=== PATIENT | female | born 1990 | race African-American/Black ===

== ENCOUNTER 2017-05-18 16:29 | Emergency (ER) | payer SELFPAY ==
[2017-05-18] MEDS ORDERED: DEXAMETHASONE SOD PHOS INJ 10 MG/1 ML VIAL IM ONE (18:02)
--- NOTE | 2017-05-18 18:06 | ER Document Report ---
HPI - HPI Patient complains to provider of: sore throat and fever Onset: Yesterday Onset/Duration: Sudden Quality of pain: Throbbing Severity: Moderate Pain Level: 4 Context: Patient states she woke up yesterday with a sore throat and fever, which has worsened today. Patient states she has a history of strep and the last time she got it her tonsils got so large that she had difficulty swallowing and breathing. Associated Symptoms: Fever, Sore throat Exacerbated by: Denies Relieved by: Denies Similar symptoms previously: Yes Recently seen / treated by doctor: No - ROS ROS below otherwise negative: Yes Systems Reviewed and Negative: Yes All other systems reviewed and negative - CONSTITUTIONAL Constitutional: REPORTS: Fever - EENT EENT: REPORTS: Sore Throat. DENIES: Congestion - NEURO Neurology: DENIES: Headache - CARDIOVASCULAR Cardiovascular: DENIES: Chest pain - RESPIRATORY Respiratory: DENIES: Trouble Breathing - GASTROINTESTINAL Gastrointestinal: DENIES: Abdominal Pain - URINARY Urinary: DENIES: Dysuria - REPRODUCTIVE Reproductive: DENIES: : - MUSCULOSKELETAL Musculoskeletal: DENIES: Extremity pain - DERM Skin Color: Normal Past Medical History - General Information source: Patient - Social History Smoking Status: Never Smoker Frequency of alcohol use: Occasional Drug Abuse: None Lives with: Spouse/Significant other Family History: Reviewed & Not Pertinent Patient has suicidal ideation: No Patient has homicidal ideation: No Endocrine Medical History: Reports: Other - anemia Surgical Hx: Negative Vertical Provider Document - CONSTITUTIONAL Agree With Documented VS: Yes Exam Limitations: No Limitations General Appearance: WD/WN, No Apparent Distress - INFECTION CONTROL TRAVEL OUTSIDE OF THE [place] IN LAST 30 DAYS: No - HEENT HEENT: Atraumatic, Normocephalic, Pharyngeal Exudate, Pharyngeal Erythema Notes: Tonsils are 2+ with exudates - NECK Neck: Lymphadenopathy-Left, Lymphadenopathy-Right - RESPIRATORY Respiratory: Breath Sounds Normal, No Respiratory Distress O2 Sat by Pulse Oximetry: 100 - CARDIOVASCULAR Cardiovascular: Regular Rate, Regular Rhythm - GI/ABDOMEN Gastrointestinal: Abdomen Soft - MUSCULOSKELETAL/EXTREMETIES Musculoskeletal/Extremeties: MAEW - NEURO Level of Consciousness: Awake, Alert, Appropriate - DERM Integumentary: Warm, Dry, No Rash Course - Vital Signs Vital signs: Temp Pulse Resp BP Pulse Ox 98.7 F 100 20 149/81 H 100 05/18/17 17:14 05/18/17 17:14 05/18/17 17:14 05/18/17 17:14 05/18/17 17:14 Discharge - Discharge Clinical Impression: Exudative pharyngitis Condition: Good Disposition: HOME, SELF-CARE Additional Instructions: Finish all antibiotics as prescribed Tylenol or Motrin as needed for fever and/or sore throat Push fluids Replace your toothbrush in 2 days Follow-up with your doctor for recheck if not better in a couple of days Return if symptoms worsen and as needed. Prescriptions: Penicillin V Potassium [Penicillin Vk 500 mg Tablet] 500 mg PO BID #10 tablet Forms: Return to Work
[2017-05-18 19:18] VITALS: BP 143/83
== END 2017-05-18 19:41 | disposition home or self-care (01) ==
LOC: ER 16:29
DX: J02.9 Acute pharyngitis, unspecified (principal); R50.9 Fever, unspecified; R59.0 Localized enlarged lymph nodes
CPT/HCPCS: 99283; 96372; J1100

== ENCOUNTER 2017-08-25 19:14 | Emergency (ER) | payer OTHER ==
--- NOTE | 2017-08-25 20:24 | ER Document Report ---
ED Medical Screen (RME) - General Chief Complaint: Vag Bleeding, +preg <12wks Stated Complaint: VAGINAL BLEEDING Time Seen by Provider: 08/25/17 20:23 Notes: Patient states she is 7 weeks [place] She states she now has cramping and bleeding. TRAVEL OUTSIDE OF THE [place] IN LAST 30 DAYS: No - Related Data Allergies/Adverse Reactions: No Known Allergies Allergy (Verified 08/25/17 19:15) Past Medical History - Social History Frequency of alcohol use: Occasional Drug Abuse: None Renal/ Medical History: Denies: Hx Peritoneal Dialysis - Immunizations Hx Diphtheria, Pertussis, Tetanus Vaccination: Yes Physical Exam - Vital signs Vitals: Temp Pulse Resp BP Pulse Ox 98.4 F 88 20 139/86 H 100 08/25/17 19:20 08/25/17 19:20 08/25/17 19:20 08/25/17 19:20 08/25/17 19:20 Course - Vital Signs Vital signs: Temp Pulse Resp BP Pulse Ox 98.4 F 88 20 139/86 H 100 08/25/17 19:20 08/25/17 19:20 08/25/17 19:20 08/25/17 19:20 08/25/17 19:20
[2017-08-25 21:09] LABS: ABSOLUTE BASOPHILS # (AUTO) 0.1 10^3/uL (0.0-0.2); ABSOLUTE EOSINOPHILS # (AUTO) 0.1 10^3/uL (0.0-0.6); ABSOLUTE LYMPHOCYTES (AUTO) 1.2 10^3/uL (0.5-4.7); ABSOLUTE MONOCYTES (AUTO) 0.5 10^3/uL (0.1-1.4); ABSOLUTE NEUT (AUTO) 5.5 10^3/uL (1.7-8.2); EOSINOPHILS % (AUTO) 0.8 % (0-6); HEMATOCRIT 35.3 % (36.0-47.0); HEMOGLOBIN 11.8 g/dL (12.0-15.5); MEAN CORPUSCULAR HEMOGLOBIN 26.1 pg (27.0-33.4); MEAN CORPUSCULAR HGB CONC 33.3 g/dL (32.0-36.0); MEAN CORPUSCULAR VOLUME 78 fl (80-97); MONOCYTES % (AUTO) 7.4 % (3-13); PLATELET COUNT 319 10^3/uL (150-450); RED CELL DISTRIBUTION WIDTH 15.2 % (11.5-14.0); SEGMENTED NEUTROPHILS % (AUTO) 74.8 % (42-78); TOTAL CELLS COUNTED % (AUTO) 100 %; WHITE BLOOD COUNT 7.3 10^3/uL (4.0-10.5)
[2017-08-25 21:27] LABS: ALANINE AMINOTRANSFERASE 27 U/L (9-52); ALBUMIN 4.3 g/dL (3.5-5.0); ALKALINE PHOSPHATASE 52 U/L (38-126); ANION GAP 11 (5-19); ASPARTATE AMINO TRANSFERASE 19 U/L (14-36); BILIRUBIN,DIRECT 0.2 mg/dL (0.0-0.4); BILIRUBIN,TOTAL 0.3 mg/dL (0.2-1.3); BLOOD UREA NITROGEN 9 mg/dL (7-20); CARBON DIOXIDE 26 mmol/L (22-30); CHLORIDE 101 mmol/L (98-107); GLUCOSE 100 mg/dL (75-110); POTASSIUM 4.2 mmol/L (3.6-5.0); SODIUM 137.7 mmol/L (137-145); TOTAL PROTEIN 7.8 g/dL (6.3-8.2)
[2017-08-25 21:34] LABS: APPEARANCE,URINE SLIGHTLY-CLOUDY; BILIRUBIN,URINE NEGATIVE (NEGATIVE); COLOR,URINE YELLOW; GLUCOSE, URINE NEGATIVE (NEGATIVE); KETONES,URINE NEGATIVE (NEGATIVE); LEUKOCYTE ESTERASE,URINE NEGATIVE (NEGATIVE); NITRITE,URINE NEGATIVE (NEGATIVE); PROTEIN,URINE NEGATIVE (NEGATIVE); URINE SPECIFIC GRAVITY 1.023; UROBILINOGEN,URINE NEGATIVE mg/dL (<2.0)
--- NOTE | 2017-08-25 21:34 | ER Document Report ---
ED General - General Chief Complaint: Vag Bleeding, +preg <12wks Stated Complaint: VAGINAL BLEEDING Time Seen by Provider: 08/25/17 20:23 Notes: 26-year-old female presents with vaginal spotting for 24 hours. Constant. In the setting of being 6 weeks . She also has a lump in her left groin area but no abdominal pain dizziness vomiting or urinary symptoms. She was evaluated in triage prior to my evaluation, she had ultrasound and labs ordered. TRAVEL OUTSIDE OF THE [place] IN LAST 30 DAYS: No - Related Data Allergies/Adverse Reactions: No Known Allergies Allergy (Verified 08/25/17 19:15) Past Medical History - Social History Smoking Status: Never Smoker Frequency of alcohol use: Occasional Drug Abuse: None Family History: Reviewed & Not Pertinent Patient has suicidal ideation: No Patient has homicidal ideation: No Renal/ Medical History: Denies: Hx Peritoneal Dialysis - Immunizations Hx Diphtheria, Pertussis, Tetanus Vaccination: Yes Review of Systems - Review of Systems Notes: REVIEW OF SYSTEMS GEN: Denies fever, chills, weight loss ENT: Denies sore throat, nasal discharge, ear pain EYES: Denies blurry vision, eye pain, discharge CV: Denies chest pain, palpitations, edema RESP: Denies cough, shortness of breath, wheezing GI: Denies abdominal pain, nausea, vomiting, diarrhea MSK: Denies joint pain/swelling, edema, SKIN: Denies rash, skin lesions LYMPH: Denies swollen glands/lymph nodes NEURO: Denies headache, focal weakness or numbness, dizziness PSYCH: Denies depression, suicidal or homicidal ideation PHYSICAL EXAMINATION General: No acute distress, well-nourished Head: Atraumatic, normocephalic ENT: Mouth normal, oropharynx moist, no exudates or tonsillar enlargement Eyes: Conjunctiva normal, pupils equal, lids normal Neck: No JVD, supple, no guarding CVS: Normal rate, regular rhythm, no murmurs Resp: No resp distress, equal and normal breath sounds bilaterally GI: Nondistended, soft, no tenderness to palpation, no rebound or guarding Ext: No deformities, no edema, normal range of motion in upper and lower ext Back: No CVA or midline TTP Skin: No rash, warm Lymphatic: No lymphadeopathy noted Neuro: Awake, alert. Face symmetric. GCS 15. Physical Exam - Vital signs Vitals: Temp Pulse Resp BP Pulse Ox 98.4 F 88 20 139/86 H 100 08/25/17 19:20 08/25/17 19:20 08/25/17 19:20 08/25/17 19:20 08/25/17 19:20 Course - Re-evaluation Re-evalutation: 08/25/17 21:34 First trimester spotting with no pain. Normal vitals. No tenderness. Awaiting labs, hCG and ultrasound. Differential includes threatened versus ectopic more likely the prior. - Vital Signs Vital signs: Temp Pulse Resp BP Pulse Ox 98.4 F 88 20 139/86 H 100 08/25/17 19:20 08/25/17 19:20 08/25/17 19:20 08/25/17 19:20 08/25/17 19:20 08/25/17 22:26 Hemoglobin normal. Rh+ no RhoGam indicated. Ultrasound shows small subchorionic bleed. Patient given careful bleeding precautions and instructed to follow-up in 48 hours for repeat beta and ultrasound. I have discussed with the patient there likely diagnosis, aftercare plan, follow -up plans and my usual and customary return precautions. They verbalized understanding of this. - Laboratory Result Diagrams: 08/25/17 20:52 08/25/17 20:52 Laboratory results interpreted by me: 08/25/17 08/25/17 20:52 20:52 Hgb 11.8 L Hct 35.3 L MCV 78 L MCH 26.1 L RDW 15.2 H Urine Ascorbic Acid 40 H Discharge - Discharge Clinical Impression: Threatened miscarriage Subchorionic hemorrhage Qualifiers: Fetus number: single or unspecified fetus Trimester: first trimester Qualified Code(s): O41.8X10 - Other specified disorders of amniotic fluid and membranes, first trimester, not applicable or unspecified Condition: Good Disposition: HOME, SELF-CARE Instructions: Bleeding During Early ([facility]), Ob-Industrial Economics Teacher Doctors Additional Instructions: Please follow-up in 2 days, in the late afternoon to have a repeat betahCG blood draw and ultrasound with GLASS [employer]TER. If you are unable to do this please return to the emergency room.
--- NOTE | 2017-08-25 22:23 | RADIOLOGY REPORT (SQ) ---
EXAM DESCRIPTION: U/S OB TRANSVAGINAL W/O DOP COMPLETED DATE/TIME: 08/25/2017 10:12 pm REASON FOR STUDY: preg/bleed COMPARISON: None. TECHNIQUE: Transvaginal static and realtime grayscale images acquired of the pelvis. Additional ramsey cted spectral and color Doppler images recorded. All images stored on PACs. bHCG: Pending. LIMITATIONS: None. FINDINGS: FETUS: Living intrauterine . EGA: 7 weeks 5 days EMILY: 04/08/2016 FHR: 162 beats per minute. SUBCHORIONIC BLEED: Yes SIZE OF BLEED: 1.1 x 1.3 x 0.4 cm UTERUS: No masses. No anomalies. CERVICAL LENGTH: 2.9 cm Closed. RIGHT ADNEXA: Normal ovary with normal vascular flow. No adnexal free fluid. Ovarian cysts. The largest is 4.1 cm LEFT ADNEXA: Ovary not identified. No adnexal free fluid. No adnexal masses. FREE FLUID: None. OTHER: No other significant finding. IMPRESSION: LIVING INTRAUTERINE . EGA 7 weeks 5 days. Small subchorionic bleed. Right ovarian cysts. Trimester of : First - 0 to 13 weeks. TECHNICAL DOCUMENTATION: JOB ID: [id number] [employer]- All Rights Reserved
[2017-08-25 22:50] VITALS: BP 107/85
== END 2017-08-25 22:50 | disposition home or self-care (01) ==
LOC: ER 19:14
DX: O20.0 Threatened abortion (principal); O41.8X10 Other specified disorders of amniotic fluid and membranes, first trimester, not applicable or unspecified; Z3A.01 Less than 8 weeks gestation of pregnancy
CPT/HCPCS: 36415; 76817; 80053; 81001; 84702; 85025; 86900; 86901; 99284

== ENCOUNTER 2018-03-21 08:51 | Outpatient (CLI) | payer OTHER ==
[2018-03-21 09:59] LABS: APPEARANCE,URINE CLEAR; BILIRUBIN,URINE NEGATIVE (NEGATIVE); COLOR,URINE STRAW; GLUCOSE, URINE NEGATIVE (NEGATIVE); KETONES,URINE NEGATIVE (NEGATIVE); LEUKOCYTE ESTERASE,URINE TRACE (NEGATIVE); NITRITE,URINE NEGATIVE (NEGATIVE); PROTEIN,URINE NEGATIVE (NEGATIVE); URINE SPECIFIC GRAVITY 1.003; UROBILINOGEN,URINE NEGATIVE mg/dL (<2.0)
[2018-03-21 10:18] LABS: URINE AMPHETAMINES SCREEN NEGATIVE; URINE BARBITURATES SCREEN NEGATIVE; URINE BENZODIAZEPINES SCREEN NEGATIVE; URINE COCAINE SCREEN NEGATIVE; URINE MARIJUANA (THC) SCREEN NEGATIVE; URINE METHADONE SCREEN NEGATIVE; URINE PHENCYCLIDINE SCREEN NEGATIVE
== END 2018-03-21 10:15 | disposition home or self-care (01) ==
LOC: LC 08:51
PROVIDERS: ATTEND Student in an Organized Health Care Education/Training Program
PROC: 4A1HXCZ Monitoring of Products of Conception, Cardiac Rate, External Approach (ICD-10-PCS; principal; 2018-03-21)
DX: O36.8130 Decreased fetal movements, third trimester, not applicable or unspecified (principal); O26.893 Other specified pregnancy related conditions, third trimester; R06.02 Shortness of breath; Z3A.37 37 weeks gestation of pregnancy
CPT/HCPCS: 59025; 80307; 81005

== ENCOUNTER 2018-03-21 10:21 | Emergency (ER) | payer OTHER ==
--- NOTE | 2018-03-21 10:44 | ER Document Report ---
HPI - HPI Onset: Other - 2 days Pain Level: 3 Context: 27 yo female 37 weeks is c/o severe nasal congestion that she can't breathe through her nose and had trouble breathing while eating. Was in [facility] for movement check and the baby is fine. She denies chest pain, shortness of breath, fever, cough. Associated Symptoms: None Exacerbated by: Denies Relieved by: Denies Similar symptoms previously: Yes Recently seen / treated by doctor: No - ROS ROS below otherwise negative: Yes Systems Reviewed and Negative: Yes All other systems reviewed and negative - REPRODUCTIVE Reproductive: DENIES: : Past Medical History - General Information source: Patient - Social History Smoking Status: Never Smoker Frequency of alcohol use: None Drug Abuse: None Lives with: Family Family History: Reviewed & Not Pertinent - Medical History Medical History: Negative Renal/ Medical History: Denies: Hx Peritoneal Dialysis Surgical Hx: Negative - Immunizations Hx Diphtheria, Pertussis, Tetanus Vaccination: Yes Vertical Provider Document - CONSTITUTIONAL Agree With Documented VS: Yes Exam Limitations: No Limitations General Appearance: No Apparent Distress - INFECTION CONTROL TRAVEL OUTSIDE OF THE [place] IN LAST 30 DAYS: No - HEENT HEENT: negative: Conjuctival Injection, Pharyngeal Erythema, Tympanic Membrane Red, Tympanic Membrane Bulging Notes: boggy nares, non tender sinus - NECK Neck: Supple - RESPIRATORY Respiratory: Breath Sounds Normal, No Respiratory Distress - CARDIOVASCULAR Cardiovascular: Regular Rate, Regular Rhythm Course - Re-evaluation Re-evalutation: 03/21/18 11:26 I asked the patient specifically if there was any chest congestion, shortness of breath or cough and she denies chest discomfort, chest pain, shortness of breath, she states the only symptom is nasal congestion and she cannot breathe through her nose with postnasal drip. Consult Dr. Sanchez who saw the baby upstairs states the baby is doing fine she was told by the nurses upstairs that the patient was complaining of shortness of breath. I explained that it is trouble breathing through her nose and she was fine with nasal decongestant for a few days and having her follow-up with her OB doctor this week. - Vital Signs Vital signs: Temp Pulse Resp BP Pulse Ox 98.4 F 85 16 123/70 100 03/21/18 10:27 03/21/18 10:27 03/21/18 10:27 03/21/18 10:27 03/21/18 10:27 Discharge - Discharge Clinical Impression: Nasal congestion, 37 weeks gestation of Condition: Good Disposition: HOME, SELF-CARE Instructions: Nasal Sprays and Drops ([facility]) Additional Instructions: cool mist humidifier, wash it daily saline nasal spray four times per day over the counter nasal decongestant twice a day See her SUPERVISOR INTELLIGENCE ANALYST doctor this week at [facility] Return to the emergency room for any chest pain chest tightness shortness of breath wheezing fever
[2018-03-21 11:42] VITALS: BP 120/70
== END 2018-03-21 11:42 | disposition home or self-care (01) ==
LOC: ER 10:21
DX: O26.893 Other specified pregnancy related conditions, third trimester (principal); R09.81 Nasal congestion; R09.82 Postnasal drip; Z3A.37 37 weeks gestation of pregnancy
CPT/HCPCS: 99283